=== PATIENT | female | born 1960 | race Caucasian/White ===

== ENCOUNTER → 2017-09-28 00:32 | Outpatient (CLI) | payer BC, SELFPAY ==
--- NOTE | 2017-09-28 08:40 | DI.REPORT_ITS ---
SYMPTOM/DIAGNOSIS: SPINAL STENOSIS, LUMBAR LUMBOSACRAL SPINE MRI: 09/28 MRI examination of the lumbosacral spine was performed according to the usual protocol. Note is made of metallic artifact overlying the SI joints bilaterally. The previously described small central disc herniation again noted at L5-S1, unchanged from previous examination of 01/25/13. Mild right neural foraminal narrowing also noted at L5-S1. No significant disc herniation identified elsewhere in the lumbar region. Neural foramina otherwise appear well maintained. Conus medullaris is intact. Mild facet hypertrophic changes noted at L4-5 and L5-S1 as well a at L3-4 No significant bony signal abnormality seen. CONCLUSION: Small central disc herniation at L5-S1, no gross interval change in appearance from previous examination of 02/01/13. No additional new findings. Mild right sided, neural foraminal narrowing at L5-S1.
== END ==
PROVIDERS: Visit Provider Nurse Practitioner
DX: M48.061 Spinal stenosis, lumbar region without neurogenic claudication (principal); M51.26 Other intervertebral disc displacement, lumbar region; M47.817 Spondylosis without myelopathy or radiculopathy, lumbosacral region
CPT/HCPCS: 72148

== ENCOUNTER 2017-10-10 15:06 | Outpatient (RCR) | payer BC, SELFPAY ==
--- NOTE | 2017-09-15 10:46 | NT_ITS ---
09/15/17 Cancelled today's scheduled PT appointment. Sahra Kraft, SERVICE DESK ANALYST
--- NOTE | 2017-10-10 15:33 | PTTR_ITS ---
DATE: 10/10/17 SUBJECTIVE: I am doing pretty much the same. I have an appointment with pain clinic on the . OBJECTIVE: * X Self Care Training - ([id number] x1): Patient was reviewed in her MRI findings and advised in what was confirmed through her Operating physician and the pain clinic. Since she had so much discomfort through mobilization and even light intrinsic strengthening the next option would be guidance in an aquatic program. [place] [facility] she has been instructed to perform some of her land based exercises in standing in the water. This will allow her to maintain her mobility, increase cardiovascular endurance and still have some amount of pain control. Patient was receptive to this idea and will try it. She will recheck within the next two weeks after her appointment with the pain clinic. Direct treatment time: 15 minutes of direct patient care.
== END 2017-10-13 23:59 | disposition home or self-care (01) ==
LOC: PT 15:06
PROVIDERS: Referring Provider Orthopaedic Surgery; Visit Provider Orthopaedic Surgery
DX: M54.5 Low back pain (principal); Z98.1 Arthrodesis status
CPT/HCPCS: 97535

== ENCOUNTER 2017-10-25 11:49 | Outpatient (CLI) | payer BC, SELFPAY ==
[2017-10-25 12:01] VITALS: BP 146/91; PULSE 98; RESP 20; TEMP 36.2; O2SAT 98
[2017-10-25] MEDS: Lidocaine 2% Pres-Free 5 ML VIAL IJ (12:39)
[2017-10-25] MEDS: Bupivacaine 0.5% Pres-Free 30 ML VIAL 5 ML IJ (12:41)
--- NOTE | 2017-10-25 12:43 | PDOC.PAIN ---
Pain Clinic Procedure Note Current Active Problems Problem Status Onset Myofascial pain dysfunction syndrome Acute Bilateral TRIGGER POINT INJECTION ECHO BURNS has been referred to the [facility] for intra-articular TRIGGER POINT injection. COMMENTS: Patient is status post bilateral SI joint fusion. The last one is right side done in June the left side was done a year prior to that. Overall she is doing better however she still is complaining of some pain above her SI region. I saw her approximately 4 years ago she had intra-articular facet injections as well as medial branch blocks with minimal relief. Today on examination she does have tenderness palpation in the muscles with taut trigger points noted on palpation. She also has bilateral positive Christy maneuver for facet mediated pain. Her most recent MRI from September 28, 2017 shows degenerative changes at multiple disc worse at L5-S1 with type I Modic changes at L5-S1 and L4-5. GRANT was interviewed and the medical record reviewed. There were no medical, pharmacologic, radiographic or other structural contraindications to attempting trigger point injection. Risks and expected side effects as well as potential benefit of the procedure were reviewed with GRANT, and GRANT's voiced concerns addressed. The printed consent form was signed and witnessed. Standard time-out procedure was performed. GRANT was placed in the prone position on the exam table. Trigger points were palpated in the lower lumbosacral region bilaterally. Using a 27-gauge 1.5 inch needle total of 10 mL's of mixture 0.5% bupivacaine and 2% lidocaine was used for separate locations. Tight muscular beds were palpated prior to injection. A significant component of the usual pain. Follow up plans and appointments were discussed with the GRANT. Post procedure instruction was given as documented in nursing documentation and having met discharge criteria, GRANT was discharged from the [facility]. COMMENTS: Patient tolerated procedure well. She will follow-up as needed. If she does not get relief then I would consider repeating a lumbar medial branch blocks bilaterally at L3, 4 and 5. That does not help then she might be a candidate for the easy vertebral nerve radiofrequency ablation at 2 levels. She would not be a candidate for the Intracept study because of her previous SI fusion. CC: Echo Arora
--- NOTE | 2017-11-06 15:07 | PDOC.PAIN_ITS ---
Pain Clinic Procedure Note Current Active Problems Problem Status Onset Myofascial pain dysfunction syndrome Acute Bilateral TRIGGER POINT INJECTION ECHO BURNS has been referred to the [facility] for intra- articular TRIGGER POINT injection. COMMENTS: Patient is status post bilateral SI joint fusion. The last one is right side done in June the left side was done a year prior to that. Overall she is doing better however she still is complaining of some pain above her SI region. I saw her approximately 4 years ago she had intra-articular facet injections as well as medial branch blocks with minimal relief. Today on examination she does have tenderness palpation in the muscles with taut trigger points noted on palpation. She also has bilateral positive Christy maneuver for facet mediated pain. Her most recent MRI from September 28, 2017 shows degenerative changes at multiple disc worse at L5-S1 with type I Modic changes at L5-S1 and L4-5. GRANT was interviewed and the medical record reviewed. There were no medical , pharmacologic, radiographic or other structural contraindications to attempting trigger point injection. Risks and expected side effects as well as potential benefit of the procedure were reviewed with GRANT, and GRANT's voiced concerns addressed. The printed consent form was signed and witnessed. Standard time-out procedure was performed. GRANT was placed in the prone position on the exam table. Trigger points were palpated in the lower lumbosacral region bilaterally. Using a 27-gauge 1.5 inch needle total of 10 mL's of mixture 0.5% bupivacaine and 2% lidocaine was used for separate locations. Tight muscular beds were palpated prior to injection. A significant component of the usual pain. Follow up plans and appointments were discussed with the GRANT. Post procedure instruction was given as documented in nursing documentation and having met discharge criteria, GRANT was discharged from the [facility]. COMMENTS: Patient tolerated procedure well. She will follow-up as needed. If she does not get relief then I would consider repeating a lumbar medial branch blocks bilaterally at L3, 4 and 5. That does not help then she might be a candidate for the easy vertebral nerve radiofrequency ablation at 2 levels. She would not be a candidate for the Intracept study because of her previous SI fusion. CC: Echo Arora
== END 2017-10-25 12:09 ==
PROVIDERS: Visit Provider Anesthesiology Pain Medicine
DX: M79.1 Myalgia (principal); Z98.890 Other specified postprocedural states
CPT/HCPCS: 20553

== ENCOUNTER 2017-11-08 08:41 | Outpatient (CLI) | payer BC, SELFPAY ==
[2017-11-08 08:47] VITALS: BP 138/88; PULSE 87; RESP 16; TEMP 35.7; O2SAT 99
--- NOTE | 2017-11-08 09:34 | DI.RAD_ITS ---
SYMPTOM/DIAGNOSIS: LUMBAR SPONDYLOSIS PAIN CLINIC: Fluoroscopy Time: 19.5 sec Images submitted from the Pain Clinic demonstrate needle positioning over the lateral portion of L4 , L5 and S1 in conjunction with an injection carried out by Dr. Marinelli. Please see the procedure report for further information.
--- NOTE | 2017-11-08 09:39 | PDOC.PAIN ---
Pain Clinic Procedure Note Current Active Problems Problem Status Onset Spondylosis of lumbar region without myelopathy or radiculopathy Chronic Lumbar/Sacral Medial Branch Blocks ECHO [place] GRANT has been referred to the [facility] for lumbar/sacral medial branch blocks. COMMENTS: Positive Kemps maneuver And spondylosis with low back pain above the level of fusion Patient was interviewed and the medical record reviewed. There were no medical, pharmacologic, radiographic or other structural contraindications to attempting fluoroscopically guided local anesthetic lumbar/sacral medial branch blocks. Risks and expected side effects as well as potential benefit of the procedure were reviewed and voiced concerns addressed. The printed consent form was signed and witnessed. Standard time-out procedure was performed. Patient was placed in the prone position on the fluoroscopy table and automated blood pressure cuff and pulse oximeter applied. The skin entry points for approaching the anatomic target points of the segmental medial branches of { bilateral L3, L4, 5} were identified with fluoroscopy and marked. Following thorough Chlorhexadine preparation of the skin and draping and 1% lidocaine infiltration of the skin entry points and subcutaneous tissues, a 22 gauge spinal needle was placed under fluoroscopic guidance down on to the target point for each respective segmental medial branch.Position was confirmed in A/P, oblique and lateral views with 0.25ml of omnipaque 240. At each point .5ml 0.5% Bupivacaine was injected. Vital signs were stable throughout the procedure and were as recorded in the docflowsheet by the nursing staff. Follow up plans and appointments were discussed and was instructed to keep careful note of how the usual pain was modified by these injections. Specifically was asked to keep a pain diary for the next 24 hours using a numeric pain scale of 0-10 and report these results at the follow-up visit. Post procedure instruction was given as documented in the nursing documentation and having met discharge criteria. Patient was discharged from the [facility]. Based on the medial branches blocked today, if the patient has adequate relief and we are able to proceed to radiofrequency ablation, the treatment should result in the denervation of the {bilateral L4-5, L5-S1 FACET JOINTS}. We would expect to denervate a total of {4} facets during the radiofrequency ablation. COMMENTS: Pain 1 from 07/23-03/25. She will need to follow-up for radiofrequency of the second. We also briefly discussed the basivertebral RF procedure at L5-S1 if this is not effective. CC: Echo Arora
[2017-11-08] MEDS: Omnipaque 240 MG/ML 50 ML BTL IJ (09:41)
[2017-11-08] MEDS: Bupivacaine 0.5% Pres-Free 30 ML VIAL IJ (09:41)
[2017-11-08 09:42] VITALS: BP 160/67; PULSE 81; RESP 17; O2SAT 95
--- NOTE | 2017-11-08 09:43 | PDOC.PAIN_ITS ---
Pain Clinic Procedure Note Current Active Problems Problem Status Onset Spondylosis of lumbar region without myelopathy or radiculopathy Chronic Lumbar/Sacral Medial Branch Blocks ECHO [place] GRANT has been referred to the [facility] for lumbar/ sacral medial branch blocks. COMMENTS: Positive Kemps maneuver And spondylosis with low back pain above the level of fusion Patient was interviewed and the medical record reviewed. There were no medical , pharmacologic, radiographic or other structural contraindications to attempting fluoroscopically guided local anesthetic lumbar/sacral medial branch blocks. Risks and expected side effects as well as potential benefit of the procedure were reviewed and voiced concerns addressed. The printed consent form was signed and witnessed. Standard time-out procedure was performed. Patient was placed in the prone position on the fluoroscopy table and automated blood pressure cuff and pulse oximeter applied. The skin entry points for approaching the anatomic target points of the segmental medial branches of { bilateral L3, L4, 5} were identified with fluoroscopy and marked. Following thorough Chlorhexadine preparation of the skin and draping and 1% lidocaine infiltration of the skin entry points and subcutaneous tissues, a 22 gauge spinal needle was placed under fluoroscopic guidance down on to the target point for each respective segmental medial branch.Position was confirmed in A/P, oblique and lateral views with 0.25ml of omnipaque 240. At each point .5ml 0.5% Bupivacaine was injected. Vital signs were stable throughout the procedure and were as recorded in the docflowsheet by the nursing staff. Follow up plans and appointments were discussed and was instructed to keep careful note of how the usual pain was modified by these injections. Specifically was asked to keep a pain diary for the next 24 hours using a numeric pain scale of 0-10 and report these results at the follow-up visit. Post procedure instruction was given as documented in the nursing documentation and having met discharge criteria. Patient was discharged from the [facility]. Based on the medial branches blocked today, if the patient has adequate relief and we are able to proceed to radiofrequency ablation, the treatment should result in the denervation of the {bilateral L4-5, L5-S1 FACET JOINTS}. We would expect to denervate a total of {4} facets during the radiofrequency ablation. COMMENTS: Pain 1 from 07/23-03/25. She will need to follow-up for radiofrequency of the second. We also briefly discussed the basivertebral RF procedure at L5- S1 if this is not effective. CC: Echo Arora
== END 2017-11-08 09:01 ==
PROVIDERS: Visit Provider Anesthesiology Pain Medicine
DX: M47.816 Spondylosis without myelopathy or radiculopathy, lumbar region (principal); G89.29 Other chronic pain
CPT/HCPCS: 64493; 64494; 64495; 72100; Q9967

== ENCOUNTER 2017-11-16 08:30 | Outpatient (CLI) | payer BC, SELFPAY ==
--- NOTE | 2017-11-16 06:00 | DI.RAD_ITS ---
SYMPTOM/DIAGNOSIS: LUMBAR SPONDYLOSIS C-ARM: Fluoroscopy Time: 58.8 seconds Fluoroscopy was utilized by Dr. Beebe during the performance of a lumbar spine injection. Please refer to the procedure report for complete details.
[2017-11-16 08:34] VITALS: BP 140/87; PULSE 97; RESP 18; TEMP 35.1; O2SAT 100
--- NOTE | 2017-11-16 09:17 | PDOC.PAIN ---
Pain Clinic Procedure Note Current Active Problems Problem Status Onset Spondylosis of lumbar region without myelopathy or radiculopathy Chronic Lumbar/Sacral Medial Branch Blocks #1 ECHO BURNS has been referred to the [facility] for lumbar/sacral medial branch blocks. COMMENTS: She did great with the first LMBB on 11/08/[address] Marinelli. Patient was interviewed and the medical record reviewed. There were no medical, pharmacologic, radiographic or other structural contraindications to attempting fluoroscopically guided local anesthetic lumbar/sacral medial branch blocks. Risks and expected side effects as well as potential benefit of the procedure were reviewed and voiced concerns addressed. The printed consent form was signed and witnessed. Standard time-out procedure was performed. Patient was placed in the prone position on the fluoroscopy table and automated blood pressure cuff and pulse oximeter applied. The skin entry points for approaching the anatomic target points of the segmental medial branches of bilateral L3-L5DR were identified with fluoroscopy and marked. Following thorough Chlorhexadine preparation of the skin and draping and 1% lidocaine infiltration of the skin entry points and subcutaneous tissues, a 25 gauge 3.5 spinal needle was placed under fluoroscopic guidance down on to the target point for each respective segmental medial branch.Position was confirmed in A/P, oblique and lateral views with 0.25ml of omnipaque 240. At each segmental level 0.5cc of 2% Lidocaine was injected. Vital signs were stable throughout the procedure and were as recorded in the docflowsheet by the nursing staff. Follow up plans and appointments were discussed and was instructed to keep careful note of how the usual pain was modified by these injections. Specifically was asked to keep a pain diary for the next 24 hours using a numeric pain scale of 0-10 and report these results at the follow-up visit. Post procedure instruction was given as documented in the nursing documentation and having met discharge criteria. Patient was discharged from the [facility]. Based on the medial branches blocked today, if the patient has adequate relief and we are able to proceed to radiofrequency ablation, the treatment should result in the denervation of the bilateral L4-L5 and L5-S1 FACET JOINTS. We would expect to denervate a total of 4 facets during the radiofrequency ablation. COMMENTS:Post procedure pain score was 2/10. She will call back with her 1-4 hour post-procedure pain scores for the low back. CC: Echo Arora
--- NOTE | 2017-11-16 09:20 | PDOC.PAIN_ITS ---
Pain Clinic Procedure Note Current Active Problems Problem Status Onset Spondylosis of lumbar region without myelopathy or radiculopathy Chronic Lumbar/Sacral Medial Branch Blocks #1 ECHO BURNS has been referred to the [facility] for lumbar/ sacral medial branch blocks. COMMENTS: She did great with the first LMBB on 11/08/[address] Marinelli. Patient was interviewed and the medical record reviewed. There were no medical , pharmacologic, radiographic or other structural contraindications to attempting fluoroscopically guided local anesthetic lumbar/sacral medial branch blocks. Risks and expected side effects as well as potential benefit of the procedure were reviewed and voiced concerns addressed. The printed consent form was signed and witnessed. Standard time-out procedure was performed. Patient was placed in the prone position on the fluoroscopy table and automated blood pressure cuff and pulse oximeter applied. The skin entry points for approaching the anatomic target points of the segmental medial branches of bilateral L3-L5DR were identified with fluoroscopy and marked. Following thorough Chlorhexadine preparation of the skin and draping and 1% lidocaine infiltration of the skin entry points and subcutaneous tissues, a 25 gauge 3.5 spinal needle was placed under fluoroscopic guidance down on to the target point for each respective segmental medial branch.Position was confirmed in A/P, oblique and lateral views with 0.25ml of omnipaque 240. At each segmental level 0.5cc of 2% Lidocaine was injected. Vital signs were stable throughout the procedure and were as recorded in the docflowsheet by the nursing staff. Follow up plans and appointments were discussed and was instructed to keep careful note of how the usual pain was modified by these injections. Specifically was asked to keep a pain diary for the next 24 hours using a numeric pain scale of 0-10 and report these results at the follow-up visit. Post procedure instruction was given as documented in the nursing documentation and having met discharge criteria. Patient was discharged from the [facility]. Based on the medial branches blocked today, if the patient has adequate relief and we are able to proceed to radiofrequency ablation, the treatment should result in the denervation of the bilateral L4-L5 and L5-S1 FACET JOINTS. We would expect to denervate a total of 4 facets during the radiofrequency ablation. COMMENTS:Post procedure pain score was 2/10. She will call back with her 1-4 hour post-procedure pain scores for the low back. CC: Echo Arora
[2017-11-16 09:24] VITALS: BP 148/88; PULSE 87; RESP 18; O2SAT 95
[2017-11-16] MEDS: Lidocaine 2% Pres-Free 5 ML VIAL IJ (09:24)
[2017-11-16] MEDS: Omnipaque 240 MG/ML 50 ML BTL IJ (09:24)
== END 2017-11-16 08:50 ==
PROVIDERS: Visit Provider Preventive Medicine Occupational Medicine
DX: M47.816 Spondylosis without myelopathy or radiculopathy, lumbar region (principal); G89.29 Other chronic pain
CPT/HCPCS: 64493; 64494; 72100; Q9967

== ENCOUNTER 2017-12-13 08:08 | Outpatient (CLI) | payer BC, SELFPAY ==
[2017-12-13 08:15] VITALS: BP 131/87; PULSE 97; RESP 18; TEMP 35.4; O2SAT 98
--- NOTE | 2017-12-13 09:10 | DI.RAD_ITS ---
SYMPTOM/DIAGNOSIS: LUMBAR SPONDYLOSIS C-ARM: Fluoroscopy Time: 57.7 seconds Images submitted from the pain clinic demonstrate needle positioning over the lower lumbar spine in conjunction with a radiofrequency ablation carried out by Dr. Marinelli. Please see the procedure report for further information.
[2017-12-13] MEDS: Midazolam 2 MG/2 ML VIAL IVP (09:17)
[2017-12-13] MEDS: Lactated Ringers 1,000 ML 80 ML IV (09:17)
[2017-12-13] MEDS: fentaNYL 100 MCG/2 ML VIAL IVP (09:18)
[2017-12-13 09:49] VITALS: BP 149/81; PULSE 77; RESP 16; O2SAT 96
--- NOTE | 2017-12-13 10:05 | PDOC.PAIN_ITS ---
Pain Clinic Procedure Note Current Active Problems Problem Status Onset Spondylosis of lumbar region without myelopathy or radiculopathy Chronic LUMBAR/SACRAL MEDIAL BRANCH COOLED RADIOFREQUENCY ECHO BURNS has been referred to the [facility] for radiofrequency treatment of chronic axial back pain. ECHO has had long standing back pain thought to be facet joint generated and which has been refractory to other therapies. Local anesthetic medial branch blocks or intra- articular facet joint injections resulted in ECHO reporting reduction of the usual axial component of pain for at least the duration of the local anesthetic effect. COMMENTS: Patient had good relief from bilateral lumbar medial branch blocks Patient was interviewed and the medical record reviewed. There were no medical , pharmacologic, radiographic or other structural contraindications to attempting fluoroscopically guided radiofrequency treatment. Risks and expected side effects as well as potential benefit of the procedure were reviewed and voiced concerns addressed. The printed consent form was signed and witnessed. Standard time-out procedure was performed. Patient was placed in the prone position on the fluoroscopy table and automated blood pressure cuff and pulse oximeter applied. The skin entry points for approaching the anatomic target points of the segmental medial branches of { bilateral L3,4,5} were identified with fluoroscopy and marked. Following thorough Chlorhexadine preparation of the skin and draping and 1% lidocaine infiltration of the skin entry points and subcutaneous tissues, a single 17 guage straight 10 cm 4mm active tip radiofrequency cannula was placed under fluoroscopic guidance along or across the anatomic course of each respective segmental medial branch. Each placement was stimulated at 50Hz and les then 0.5V for medial branch sensory localization and the at 2Hz and up to 3 times the sensory voltage without any evidence of distal myotomal stimulation. 1cc of 1% ;idocaine was injected at each site. At each placement a continuous mode radiofrequency treatment was done at 90 degrees C for 90secs and then rotated 180degrees and then repeated. This radiofrequency treatment should result in the denervation of the { bilateral L4-5, L5-S1 FACET JOINTS}.~ A total of {4} facets were expected to be denervated from today's treatment. Vital signs were stable throughout the procedure and were as recorded in the docflowsheet by the nursing staff. If given, dosages of intravenous drugs for anxiolysis and analgesia were documented in the Medication Administration Record (MAR). Follow up plans and appointments were discussed. Post procedure instruction was given as documented in the nursing documentation and having met discharge criteria, ECHO was discharged from the [facility]. COMMENTS: Versed 1 mg and 50 mcg given. Patient will follow-up as needed. She does have significant Modic changes at L5-S1 so would consider basal vertebral nerve RF if not relieved above. CC: Echo Arora
== END 2017-12-13 08:28 ==
PROVIDERS: Visit Provider Anesthesiology Pain Medicine
DX: G44.82 Headache associated with sexual activity; R42 Dizziness and giddiness; F17.210 Nicotine dependence, cigarettes, uncomplicated; M47.816 Spondylosis without myelopathy or radiculopathy, lumbar region; G89.29 Other chronic pain
CPT/HCPCS: 64635; 64636; 72100; J2250; J3010

== ENCOUNTER 2018-10-18 12:03 | Outpatient (CLI) | payer BC, SELFPAY ==
--- NOTE | 2018-10-18 13:16 | DI.RAD_ITS ---
SYMPTOMS/DIAGNOSIS: RT HIP PAIN, M25.551 RIGHT HIP AND PELVIS: Three views were obtained. There are fixation devices of both SI joints. The cartilaginous joint spaces of the hips appear fairly well maintained. No significant bony abnormality seen.
== END 2018-10-18 12:23 ==
PROVIDERS: Visit Provider Nurse Practitioner Family
DX: M25.551 Pain in right hip (principal)
CPT/HCPCS: 73502

== ENCOUNTER 2019-03-12 01:00 | Outpatient (CLI) | payer BC, SELFPAY ==
--- NOTE | 2019-03-12 08:54 | DI.MRI_ITS ---
EXAM: MR LUMBAR SPINE WO/W CLINICAL HISTORY: SACROILITIS, M46.1, SCIATICA RT, M54.31, PAIN IN RT HIP. TECHNIQUE: Multiplanar multisequence MRI was performed. Fat-suppressed T1 axial and sagittal sequen jg were performed pre and post IV gadolinium. COMPARISON: MRI - LUMBAR SPINE WO CONTRAST from 09/28/2017 XR hip RT complete AP pelvis from 10/18/2018 FINDINGS: Metallic hardware is seen across the sacroiliac joints which creates artifact particularly on the fat -suppressed sequences. A marker was placed over the area of the patient's pain over the midline of t he upper sacrum. The marrow signal is normal. There are no abnormal enhancing lesions. There is mi ld disc bulging at T12-L1. The conus medullaris appears intact. The L1-2 level shows small osteophy aneudy projecting anteriorly. At L2-3, there is mild disc bulging and mild facet degenerative changes b ut no significant neural foraminal narrowing or central canal stenosis. At L3-4, there is mild disc bulging and mild facet degenerative changes as well as mild ligamentous hypertrophy. There is no sig nificant neural foraminal narrowing or central canal stenosis. At L4-5, there is mild to moderate lo ss of disc height and concentric disc bulging. There are facet degenerative changes but no significa nt neural foraminal narrowing. At L5-S1, there is moderate loss of disc height. There is a small ce ntral disc protrusion which does not definitely contact nerve roots. It does not appear to contact t he thecal sac. There is no significant neural foraminal narrowing. The findings appear roughly stab le when compared with the previous exam. IMPRESSION: Stable degenerative disc changes and facet degenerative changes. There is no significant neural fora analisa narrowing or central canal stenosis.
[2019-03-12 09:06] LABS: Anion Gap 9.2 mmol/L (3-11); BUN 10 mg/dL (7-18); CO2 28.8 mmol/L (21.0-32.0); CREATININE 0.74 mg/dL (0.55-1.02); Calcium 8.4 mg/dL (8.5-10.1); Chloride 101 mmol/L (98-107); Glucose 99 mg/dL (74-106); Potassium 3.8 mmol/L (3.5-5.1); Sodium 139 mmol/L (136-145)
[2019-03-12] MEDS: Normal Saline Flush 10 ML SYR IVP (09:21)
[2019-03-12] MEDS: Gadoterate meglumine 20 ML VIAL 15 ML IVP (09:23)
[2019-03-12 10:17] LABS: ALT 16 U/L (14-59); AST 10 U/L (15-37); Calculated LDL 109 mg/dL (<100); Cholesterol 178 mg/dL (<200); HDL Cholesterol 53 mg/dL (40-60); Triglyceride 84 mg/dL (<150)
== END 2019-03-12 01:20 ==
PROVIDERS: PCP Nurse Practitioner Family; Visit Provider Nurse Practitioner Family
DX: M25.551 Pain in right hip (principal); M54.31 Sciatica, right side; M46.1 Sacroiliitis, not elsewhere classified; M51.17 Intervertebral disc disorders with radiculopathy, lumbosacral region; M47.27 Other spondylosis with radiculopathy, lumbosacral region; Z13.220 Encounter for screening for lipoid disorders; Z00.00 Encounter for general adult medical examination without abnormal findings; Z13.89 Encounter for screening for other disorder
CPT/HCPCS: 72158; 80048; 80061; 84450; 84460

== ENCOUNTER 2019-04-23 13:33 | Outpatient (CLI) | payer BC, SELFPAY ==
--- NOTE | 2019-04-23 06:00 | DI.RAD_ITS ---
EXAM: XR PAIN CLINIC LUMBAR SP 2V CLINICAL HISTORY: DX: LUMBAR RADICULOPATHY TECHNIQUE: 2D and realtime digital imaging was performed. CONTRAST MATERIAL: Refer to procedure report. COMPARISON: No exams were available for comparison FINDINGS: Fluoroscopy was provided for Dr. Lin during the performance of a lumbar epidural steroid injection. P alyssa refer to the procedure report for complete details. Fluoro time: 26.1 seconds IMPRESSION:
--- NOTE | 2019-04-23 13:35 | PDOC.PAIN ---
Pain Clinic Procedure Note Procedure Note Procedure Note: Lumbar Epidural Steroid Injection Procedure Note Pre-operative diagnosis: lumbar radiculopathy Post-operative diagnosis: same as above COMMENTS: patient reports back andn right more than left leg pain. She was evaluated by Ms Alexia Blackwell APRN in our pain clinic and is referred for trial of LESI for symptomatic relief. CHITO BURNS has been referred to the [facility] for lumbar epidural steroid injection. The patient was greeted by the nurse who verified patients name and . Patient was then taken to the fluoroscopy suite. The patient was interviewed and the medial record reviewed. There were no medical, pharmacologic, radiographic, or other structural contraindications to attempting fluoroscopically guided lumbar epidural steroid injection. Risks and expected side effects as well as potential benefits of the procedure were reviewed and voiced concerns expressed. The patient consent form was signed and witnessed. Standard patient time-out procedure was performed. The patient was placed in the prone position on the fluoroscopy table and automated blood pressure cuff and pulse oximeter applied. The skin entry point for entering/approaching the epidural space by a L5-S1 and marked. Following thorough chlorhexadine preparation of the skin and draping and 1% lidocaine infiltration of the skin entry point and subcutaneous tissues, a 18 gauge Touhy needle was placed under fluoroscopic guidance and with loss of resistance technique into the epidural space. Needle tip placement and depth were aided and confirmed by fluoroscopy. There was no paresthesia or return of blood or CSF through the needle. 1 cc's of Omnipaque 240 was injected with clear epidural spread confirmed with fluoroscopy. 80mg depomedrol was injected. There was not any unusual discomfort expressed by CHITO BURNS. Patient's vital signs were stable throughout the procedure and were as recorded in nursing records. Follow up plans and appointments were discussed with patient. Post procedure instruction was given as documented in nursing records and having met discharge criteria and was discharged from the [facility]. COMMENTS: If this procedure is helpful, it can be completed up to 3 times per 12 months. I personally performed the entire procedure. Juanito Lin MD Pain Management
[2019-04-23 13:38] VITALS: BP 132/79; PULSE 104; RESP 20; TEMP 37; O2SAT 98
[2019-04-23 14:17] VITALS: BP 148/82; PULSE 98; RESP 15; O2SAT 100
[2019-04-23] MEDS: methylPREDNISolone ACETATE 80 MG/ML VIAL IJ (14:19)
[2019-04-23] MEDS: Omnipaque 240 MG/ML 50 ML BTL IJ (14:20)
== END 2019-04-23 13:53 ==
PROVIDERS: PCP Nurse Practitioner Family; Visit Provider Internal Medicine
DX: M54.16 Radiculopathy, lumbar region (principal)
CPT/HCPCS: 62323; 72100; J1040; Q9967

== ENCOUNTER 2019-08-13 09:32 | Outpatient (CLI) | payer BC, SELFPAY ==
--- NOTE | 2019-08-13 06:00 | DI.RAD_ITS ---
EXAM: XR PAIN CLINIC LUMBAR SP 2V CLINICAL HISTORY: Dx: Lumbar Radiculopathy TECHNIQUE: 2D and realtime digital imaging was performed. CONTRAST MATERIAL: Refer to procedure report. COMPARISON: No exams were available for comparison FINDINGS: Fluoroscopy was provided for Dr. Lin during the performance of a epidural steroid injection. Please refer to the procedure report for complete details. Fluoro time: 29 seconds IMPRESSION:
[2019-08-13 09:46] VITALS: BP 109/87; PULSE 92; RESP 20; TEMP 36.6; O2SAT 98
--- NOTE | 2019-08-13 09:50 | PDOC.PAIN_ITS ---
Pain Clinic Procedure Note Procedure Note Procedure Note: CANDAL EPIDURAL STEROID WITH CATHETER INJECTION PROCEDURE NOTE Pre-operative diagnosis: lumbar radiculopathy Post-operative diagnosis: same as above Date of service: August 13, 2019 COMMENTS: patient received LESI at L5-S1 level on 04/23/2019 which provided 2.5 weeks of pain relief. She returns for a repeat injection. She is status post bilateral SI joint fusion surgery by Dr Boyer. She reports left sided SI pain improved dramatically after fusion, however, right side remains to be problematic. She reports pain over lower back as well as right buttock area. We discussed using different approach to access the epidural space, caudal BERNARD allows catheter to sacral levels which partially innervates the sacroiliac joint. CHITO BURNS has been referred to the [facility] for lumbar epidural steroid injection. Patient was greeted by the nurse who verified patients name and . Patient was then taken to the fluoroscopy suite. Patient was interviewed and the medical record reviewed. There were no medical, pharmacologic, radiographic, or other structural contraindications to attempting fluoroscopically guided lumbar epidural steroid injection. Risks and expected side effects as well as potential benefits of the procedure were reviewed and voiced concerns addressed. The patient consent form was signed and witnessed. Standard time-out procedure was performed. Patient was placed in the prone position on the fluoroscopy table and automated blood pressure cuff and pulse oximeter applied. The skin entry point for entering/approaching sacral cornu. Following thorough chlorhexadine preparation of the skin and draping and 1% lidocaine infiltration of the skin entry point and subcutaneous tissues, a 17 gauge Touhy needle was placed under fluoroscopic guidance and with loss of resistance technique into the epidural space. Needle tip placement and depth were aided and confirmed by fluoroscopy. There was no paresthesia or return of blood or CSF through the needle. An 19 gauge radio- opaque Arrow catheter was thread to the S1 level and 1 cc's of Omnipaque 240 was injected with clear epidural spread confirmed with fluoroscopy with delineation of cephalad flow reaching L5 level. Then 80mg depomedrol mixed with 1.5cc of preservative free normal saline and 2cc of preservative free 1% lidocaine was injected. There was not any unusual discomfort expressed. please note, the catheter was preferentially directed towards the right side. Vital signs were stable throughout the procedure and were as recorded in nursing records. Follow up plans and appointments were discussed.Post procedure instruction was given as documented in nursing records and having met discharge criteria and was discharged from the [facility]. COMMENTS: patient tolerated procedure well. She reports with injection of contrast and medication, she felt reproduction of right buttock pain. Immediately after procedure, she reported some improvement of her lower back pain. If caudal BERNARD achieves additional pain relief, would repeat caudal in future. I personally performed the entire procedure. Juanito Lin MD Pain Management
[2019-08-13] MEDS: methylPREDNISolone ACETATE 80 MG/ML VIAL IJ (10:15)
[2019-08-13] MEDS: Omnipaque 240 MG/ML 50 ML BTL IJ (10:17)
[2019-08-13 10:18] VITALS: BP 150/90; PULSE 85; RESP 13; O2SAT 100
== END 2019-08-13 09:52 ==
PROVIDERS: PCP Nurse Practitioner Family; Visit Provider Internal Medicine
DX: M54.16 Radiculopathy, lumbar region (principal)
CPT/HCPCS: 62323; 72100; J1040; Q9967

== ENCOUNTER 2019-08-30 03:53 | Outpatient (CLI) | payer BC, SELFPAY ==
--- NOTE | 2019-08-30 09:42 | DI.RAD_ITS ---
EXAM: XR SACROILIAC JOINTS CLINICAL HISTORY: h/o b/l SIJ fusions with continued R SIJ pain,SI JOINT DYSFUNCTION,M53.3 TECHNIQUE: COMPARISON: CR XR hip RT complete AP pelvis from 10/18/2018 FINDINGS: Four views were obtained. There are bilateral SI joint effusions with fixation devices in place bila terally. These have been present on prior radiographs and appear grossly unchanged in alignment in c omparison with previous films of October 2018. No other significant bony abnormality seen. IMPRESSION:
== END 2019-08-30 04:13 ==
PROVIDERS: PCP Nurse Practitioner Family; Visit Provider Nurse Practitioner Family
DX: M53.3 Sacrococcygeal disorders, not elsewhere classified (principal); Z98.890 Other specified postprocedural states
CPT/HCPCS: 72202

== ENCOUNTER 2019-09-23 01:52 | Outpatient (CLI) | payer BC, SELFPAY ==
--- NOTE | 2019-09-23 | DI.CT_ITS ---
EXAM: CT PELVIC WO CLINICAL HISTORY: CHRONIC MIDLINE LOW BACK PAIN,RT SI PAIN,S/P FUSION,EVALUATE FOR LOOSENING. TECHNIQUE: Imaging Protocol: Axial computed tomography images with coronal and sagittal reformatted images were created and reviewed. COMPARISON: CR XR SACROILIAC JOINTS from 08/30/2019 FINDINGS: Bones: The osseous structures and articular surfaces are intact. There is no evidence of fracture or dislocation. Bony alignment is satisfactory. Moderate degenerative changes are seen in the lower blanquita mbar spine. No lytic or sclerotic lesions are identified. The patient is status post bilateral SI althea int fusion. The orthopedic hardware appears intact. No lucencies are seen in or about the orthopedi c hardware to suggest loosening or fracture. Soft Tissues: Normal. IMPRESSION: 1. Bilateral SI joint fusion without evidence of loosening or fracture. 2. Moderate degenerative changes seen in the lower lumbar spine. RADIATION DOSE DELIVERED: 248.89mGy.cm Total DLP 248.89mGy.cm Total DLP 248.89mGy.cm Total DLP 248.89mGy.cmTotal DLP DATA REPOSITORY: All CT scans at this facility are submitted to the National Radiology Data Registry (NRDR) Dose Index Registry (DIR) with the [employer] ([employer]). RADIATION OPTIMIZATION: All CT scans at this facility use at least one of these dose optimization te chniques: automated exposure control; mA and/or kV adjustment per patient size (includes targeted exa ms where dose is matched to clinical indication); or iterative reconstruction.
== END 2019-09-23 02:12 ==
PROVIDERS: PCP Nurse Practitioner Family; Visit Provider Orthopaedic Surgery
DX: M54.5 Low back pain (principal); M53.3 Sacrococcygeal disorders, not elsewhere classified; Z98.1 Arthrodesis status; M47.816 Spondylosis without myelopathy or radiculopathy, lumbar region
CPT/HCPCS: 72192

== ENCOUNTER 2020-04-29 19:35 | Outpatient (REF) | payer BC, SELFPAY ==
[2020-04-29 21:48] LABS: Abs Immature Grans 0.04 10^3/uL (0.0-0.06); Absolute Basophil Count 0.17 10^3/uL (0.0-0.2); Absolute Lymphocyte Count 3.35 10^3/uL (1.2-3.4); Absolute Monocyte Count 1.54 10^3/uL (0.1-0.8); Absolute Neutrophil Count 6.74 10^3/uL (1.2-6.7); Basophils % 1.3; Eosinophils % 8.4; HCT 45.1 % (36.0-46.0); HGB 15.2 g/dL (11.2-15.7); Immature Grans % 0.3; Lymphocytes % 25.9; MCH 32.1 pg (27.0-33.0); MCHC 33.7 % (32.0-36.0); MCV 95.1 fL (80-95); MPV 12.1 fL (8.0-11.0); Monocytes % 11.9; Neutrophils % 52.2; Nucleated RBC 0 %; Platelet Count 195 10^3/uL (130-400); RBC 4.74 10^6/uL (3.93-5.22); RDW 12.6 % (11.7-14.6); RDW-SD 44.6 fL; WBC 12.92 10^3/uL (4.4-10.8)
[2020-04-29 21:53] LABS: Absolute Eosinophil Count 1.09 10^3/uL (0.0-0.7)
[2020-04-29 21:54] LABS: Anion Gap 6.9 mmol/L (3-11); BUN 20 mg/dL (7-18); CO2 31.1 mmol/L (21.0-32.0); CREATININE 0.7 mg/dL (0.55-1.02); Calcium 9.2 mg/dL (8.5-10.1); Chloride 101 mmol/L (98-107); Glucose 102 mg/dL (74-106); Potassium 4.5 mmol/L (3.5-5.1); Sodium 139 mmol/L (136-145)
[2020-04-29 22:07] LABS: Diff Comment Agrees w/ Instrument; RBC Morphology Normal
== END 2020-04-29 19:36 | disposition home or self-care (01) ==
LOC: NCHCN 19:35
PROVIDERS: PCP Nurse Practitioner Family; Visit Provider Nurse Practitioner Family
DX: Z01.812 Encounter for preprocedural laboratory examination
CPT/HCPCS: 80048; 85025

== ENCOUNTER 2020-09-24 13:08 | Outpatient (REF) | payer BC, SELFPAY ==
[2020-09-24 14:10] LABS: Abs Immature Grans 0.07 10^3/uL (0.0-0.06); Absolute Basophil Count 0.11 10^3/uL (0.0-0.2); Absolute Eosinophil Count 0.58 10^3/uL (0.0-0.7); Absolute Lymphocyte Count 2.75 10^3/uL (1.2-3.4); Absolute Monocyte Count 1.27 10^3/uL (0.1-0.8); Absolute Neutrophil Count 6.39 10^3/uL (1.2-6.7); Eosinophils % 5.2; HCT 41.9 % (36.0-46.0); Immature Grans % 0.6; Lymphocytes % 24.6; MCH 32.2 pg (27.0-33.0); MCHC 33.4 % (32.0-36.0); MCV 96.3 fL (80-95); MPV 11.2 fL (8.0-11.0); Monocytes % 11.4; Neutrophils % 57.2; Nucleated RBC 0 %; Platelet Count 128 10^3/uL (130-400); RBC 4.35 10^6/uL (3.93-5.22); RDW 12.9 % (11.7-14.6); RDW-SD 46.1 fL; WBC 11.17 10^3/uL (4.4-10.8)
[2020-09-24 14:14] LABS: Uric Acid 5.1 mg/dL (2.6-6.0)
== END 2020-09-24 13:09 | disposition home or self-care (01) ==
LOC: NCHCN 13:08
PROVIDERS: PCP Nurse Practitioner Family; Visit Provider Nurse Practitioner Family
DX: M25.521 Pain in right elbow (principal); M25.522 Pain in left elbow; D72.829 Elevated white blood cell count, unspecified
CPT/HCPCS: 84550; 85025

== ENCOUNTER 2020-09-28 02:08 | Outpatient (CLI) | payer BC, SELFPAY ==
--- NOTE | 2020-09-28 | DI.RAD_ITS ---
Exam(s) XR ELBOW LT COMPLETE EXAM: XR ELBOW LT COMPLETE CLINICAL HISTORY: ELBOW PAIN,M25.529. TECHNIQUE: 2D digital imaging was performed. COMPARISON: CR XR ELBOW RT COMPLETE from 09/28/2020 FINDINGS: There is no evidence of fracture nor joint effusion. There is no swelling of the olecranon bursa. Radial head and capitellum appear unremarkable but there is a small corticated ossified density measu ring 1.3 millimeters noted in the mid joint space on this single view. This is most probably loose i ntra-articular body. There is no obvious osteochondral defect in the capitellum and trochlea. Minim al degenerative changes evident. Slight bony excrescences on both epicondyles may indicate epicondylitis. Correlation with clinical e xam recommended. IMPRESSION: Small 1.3 millimeter loose intra-articular body. No obvious joint effusion. If clinically indicated MRI follow-up can be performed. Mild epicondylar findings as described above. DATA REPOSITORY: RADIATION DOSE DELIVERED:
--- NOTE | 2020-09-28 | DI.RAD_ITS ---
Exam(s) XR ELBOW RT COMPLETE EXAM: XR ELBOW RT COMPLETE CLINICAL HISTORY: ELBOW PAIN,M25.529. TECHNIQUE: 2D digital imaging was performed. COMPARISON: No exams were available for comparison FINDINGS: There is no evidence of fracture nor joint effusion and there is no prominent swelling of the olecran on bursa. The radial head appears unremarkable. Slight degenerative change at the level of the capi tellum noted but no osteochondral defect. No obvious loose intra-articular body (as is seen on the o pposite side). Minimal degenerative changes. Bone density normal. Mild cortical irregularity of lissette th epicondyles is noted, similar to the opposite side. IMPRESSION: DATA REPOSITORY: RADIATION DOSE DELIVERED:
== END 2020-09-28 02:28 ==
PROVIDERS: PCP Nurse Practitioner Family; Visit Provider Nurse Practitioner Family
DX: M24.022 Loose body in left elbow (principal); M19.021 Primary osteoarthritis, right elbow
CPT/HCPCS: 73080

== ENCOUNTER 2020-12-30 14:37 | Outpatient (REF) | payer BC, SELFPAY ==
[2020-12-30 21:15] LABS: Abs Immature Grans 0.04 10^3/uL (0.0-0.06); Absolute Lymphocyte Count 2.77 10^3/uL (1.2-3.4); Absolute Monocyte Count 1.25 10^3/uL (0.1-0.8); Basophils % 1.1; Eosinophils % 6.8; HCT 40.2 % (36.0-46.0); HGB 13.4 g/dL (11.2-15.7); Immature Grans % 0.4; Lymphocytes % 24.3; MCH 31.6 pg (27.0-33.0); MCHC 33.3 % (32.0-36.0); MCV 94.8 fL (80-95); MPV 12.1 fL (8.0-11.0); Neutrophils % 56.4; Nucleated RBC 0 %; Platelet Count 141 10^3/uL (130-400); RBC 4.24 10^6/uL (3.93-5.22); RDW 14.1 % (11.7-14.6); RDW-SD 49.1 fL; WBC 11.39 10^3/uL (4.4-10.8)
[2020-12-30 21:24] LABS: Absolute Basophil Count 0.13 10^3/uL (0.0-0.2); Absolute Eosinophil Count 0.77 10^3/uL (0.0-0.7); Absolute Neutrophil Count 6.42 10^3/uL (1.2-6.7)
== END 2020-12-30 14:38 | disposition home or self-care (01) ==
LOC: LBN 14:37
PROVIDERS: PCP Nurse Practitioner Family; Visit Provider Nurse Practitioner Family
DX: D72.829 Elevated white blood cell count, unspecified (principal)
CPT/HCPCS: 85025

== ENCOUNTER 2021-02-09 01:57 | Outpatient (CLI) | payer BC, SELFPAY ==
--- NOTE | 2021-02-09 13:30 | DI.MRI_ITS ---
Exam(s) MR UPPER JOINT RT WO EXAM: MR UPPER JOINT RT WO CLINICAL HISTORY: Failed conservative txs,lateral epicondylitis,m77.11. TECHNIQUE: Multiplanar multisequence MRI was performed. COMPARISON: CR XR ELBOW LT COMPLETE from 09/28/2020 CR XR ELBOW LT COMPLETE from 09/28/2020 FINDINGS: MR examination of the elbow was performed according to the usual protocol. There is reportedly histo ry of lateral epicondylitis. On today's examination, no bony signal abnormality is seen involving the bones of the elbow. There i s a slight joint effusion. There is abnormal signal in the common extensor tendon. There appears to be an attachment tear at th e lateral epicondyle measuring about 3 millimeters in width. There may be some fraying of the underl isabelle radial and or ulnar collateral ligaments without gross disruption. There is no evidence tendon retraction. There is a slight subcutaneous fluid collection overlying common extensor region. Otherwise no significant abnormality is seen involving ligaments or tendons of the elbow. No signifi cant fluid collection. IMPRESSION: The appearance as described is consistent with minor tearing at the common extensor tendon origin on the lateral epicondyle of the humerus without retraction. Suspect radial and/or ulnar collateral lig ament partial-thickness injury as well. DATA REPOSITORY:
== END 2021-02-09 02:17 ==
PROVIDERS: PCP Nurse Practitioner Family; Visit Provider Student in an Organized Health Care Education/Training Program
DX: M77.11 Lateral epicondylitis, right elbow (principal); M25.421 Effusion, right elbow; S56.511A Strain of other extensor muscle, fascia and tendon at forearm level, right arm, initial encounter; X58.XXXA Exposure to other specified factors, initial encounter
CPT/HCPCS: 73221

== ENCOUNTER 2021-03-17 03:11 | Outpatient (CLI) | payer BC, SELFPAY ==
[2021-03-17 11:31] LABS: Source Nasal/Nares
[2021-03-17 16:13] LABS: COVID-19 PCR Negative (Negative)
== END 2021-03-17 03:12 | disposition home or self-care (01) ==
LOC: LBO 03:11
PROVIDERS: PCP Nurse Practitioner Family; Visit Provider Student in an Organized Health Care Education/Training Program
DX: Z20.822 Contact with and (suspected) exposure to COVID-19 (principal)
CPT/HCPCS: 87635

== ENCOUNTER 2021-03-30 01:02 | Outpatient (CLI) | payer BC, SELFPAY ==
[2021-03-30 13:40] LABS: COVID-19 PCR Negative (Negative)
[2021-03-30 13:46] LABS: Source NASAL
== END 2021-03-30 01:03 | disposition home or self-care (01) ==
LOC: LBO 01:03
PROVIDERS: PCP Nurse Practitioner Family; Visit Provider Student in an Organized Health Care Education/Training Program
DX: Z20.822 Contact with and (suspected) exposure to COVID-19 (principal); Z01.818 Encounter for other preprocedural examination
CPT/HCPCS: 87635

== ENCOUNTER 2021-04-01 08:50 | Day surgery (SDC) | payer BC, SELFPAY ==
[2021-04-01] VITALS (8 sets, daily range): BP systolic 114–161; BP diastolic 57–85; PULSE 75–99; RESP 14–19; TEMP 36.5–37; O2SAT 91–100; BMI 24.5
[2021-04-01] MEDS: Lactated Ringers 1,000 ML 100 ML IV (09:42)
--- NOTE | 2021-04-01 10:08 | W.ANESPRE ---
General Info Date of Service Date Performed: 04/01/21 Height: 5 ft 10 in Weight: 77.4 kg Body Mass Index (BMI): 24.5 Surgical Procedure: Operation Date: 04/01/21 10:50 Proposed Procedure Side Surgeon p Elbow Arthroscopy Lake Hancock MD Meds Allergies and Home Medications Allergies Allergy/AdvReac Type Severity Reaction Status Date / Time adhesive Allergy Intermediate rash Verified 04/01/21 09:02 latex Allergy Intermediate rash Verified 04/01/21 09:02 mold Allergy Intermediate Hives Verified 04/01/21 09:02 morphine Allergy HIVES Verified 04/01/21 09:02 Home Medication Medication Instructions Recorded hydrocortisone 2.5 % topical cream 1 applic TOPICAL BID PRN 04/04/19 aspirin 81 mg tablet,delayed 81 mg PO DAILY 14 Days #14 tab 04/01/21 release naproxen 250 mg tablet 250 - 500 mg PO BID PRN #30 tab 04/01/21 oxycodone 5 mg tablet 5 - 10 mg PO Q4H PRN #12 tab MDD 04/01/21 30 mg Current Visit Medications: Current Medications Generic Name Dose Route Start Last Admin Trade Name Freq PRN Reason Stop Dose Admin Ringer's Solution 1,000 mls @ 100 mls/hr 04/01/21 06:00 04/01/21 09:42 IV 04/30/21 23:59 100 mls/hr INFUSION VALDEZ Administration Cefazolin Sodium/Dextrose 2 gm in 50 mls @ 100 mls/hr 04/01/21 06:00 Ancef Duplex IVPB 04/01/21 16:00 PREOP VALDEZ IV Miscellaneous Supplies 1 each 04/01/21 06:00 Iv Access IV 04/30/21 23:59 DIRECTED VALDEZ Naproxen 250 - 500 mg 04/01/21 07:16 Naproxen 500 Mg Tab PO BID PRN PRN Oxycodone HCl 5 - 10 mg 04/01/21 07:16 Oxycodone 5 Mg Tab PO Q4H PRN PRN Sodium Chloride 0 ml 04/01/21 06:00 Normal Saline Flush 10 Ml Syr IV 04/30/21 23:59 PRN PRN Sodium Chloride 0 ml 04/01/21 06:00 Normal Saline 10 Ml Vial IJ 04/30/21 23:59 DIRECTED PRN Sterile Water 0 ml 04/01/21 06:00 Water,Injection,Sterile 10 Ml Vial IJ 04/30/21 23:59 DIRECTED PRN PFSH Active Problems Active Problems: Problem Status Onset Code Myofascial pain dysfunction syndrome M79.1 Spondylosis of lumbar region without myelopathy or radiculopathy M47.816 Lateral epicondylitis of both elbows M77.11, M77.12 Cubital tunnel syndrome on right G56.21 Right carpal tunnel syndrome G56.01 Medical History Medical History Atopic dermatitis Back pain ETOH abuse Fusion congenital, sacroiliac joint Lumbosacral radiculopathy Pain in right hip Preventative health care Sacroiliitis Sciatica of right side Screening for hyperlipidemia Skin lesions Spinal stenosis, lumbar Tobacco abuse Surgical History Surgical History (Updated 04/01/21 @ 09:01 by James Alexander) H/O knee surgery Hx of tubal ligation Status post lumbar spine surgery for decompression of spinal cord L4-L5 & S1 Tobacco Smoking/Tobacco Use Status: Current every day Tobacco Type: cigarettes Alcohol Alcohol Intake: current Alcohol intake frequency: 0-2 drinks per day Alcohol type: beer Substance Use Substance use: Daily Substance use type: marijuana Details: Marijuana for pain Vital Signs and Lab Results Vital Signs Most Recent Vital Signs in EMR: Most Recent Vital Signs Temp Pulse Resp BP Pulse Ox 36.7 C 99 H 16 130/79 99 04/01/21 09:03 04/01/21 09:03 04/01/21 09:03 04/01/21 09:03 04/01/21 09:03 Lab Results Blood Type / Crossmatch: No Data to Display Complete Blood Count: No Data to Display Complete Metabolic Panel: No Data to Display Liver Function Panel: No Data to Display Coagulation Panel: No Data to Display Cardiac Panel: No Data to Display Arterial Blood Gas: No Data to Display Venous Blood Gas: No Data to Display Pancreas Panel: No Data to Display Thyroid Panel: No Data to Display Infectious Disease: Coronavirus (COVID-19)(PCR) Negative (Negative) 03/30/21 08:31 03/30/21 Coronavirus 2019 Source NASAL 03/30/21 08:31 03/30/21 Blood Cultures: No Data to Display Toxicology Panel: No Data to Display Anesthesia Assessment and Plan Anesthesia History Personal History: No History of Anesthesia Complications Family History: No Family History of Anesthesia Complications Exercise Tolerance Exercise Tolerance: Metabolic Equivalents>4 Pertinent Negatives Pertinent Negatives: No Symptoms of GERD, No Major Cardiovascular Symptoms or Complaints and No Major Pulmonary Symptoms or Complaints Cardiac & Pulmonary Exam Cardiac Exam: Normal S1/S2 Heart Sounds Pulmonary Exam: Clear Bilateral Breath Sounds Implantable Cardiac Device Does patient have a Pacemaker or an ICD?: No Airway Exam Known Difficult Airway: No Mallampati Class: 1 Mouth Opening: Normal (> 3cm) Thyromental Distance: Greater than 3 cm Neck Range of Motion: Full ROM Neck Circumference: Normal Teeth Condition: Normal Dentition ASA Classification ASA Score: ASA 2 Emergency Case?: No NPO Status NPO Status: NPO Clears >2 hours, Solids >8 hours Anesthesia Plan Resuscitation Status: Full Code Anesthesia Technique: General Anesthesia Airway Planned: Endotracheal Tube Pain Management: Surgeon and patient request nerve block Monitors Used: Standard Monitors
[2021-04-01] MEDS: ceFAZolin 2 GM/50 ML BAG IVPB (10:52)
[2021-04-01] MEDS: EPINEPHrine 30 MG/30 ML VIAL (11:45)
--- NOTE | 2021-04-01 11:51 | W.PM.DSUDISC ---
Discharge Plan Disposition Patient Disposition: HOME Condition: Stable Discharge Details Reason For Visit: Right elbow surgery Attending Provider: Lake Hancock Primary Care Provider: Heather Marshall Home Meds and New Rx's Prescriptions: New naproxen 250 mg tablet 250 - 500 mg PO BID PRNQty: 30 0RF Rx Instructions: take with a meal aspirin 81 mg tablet,delayed release (DR/EC) 81 mg PO DAILY 14 Days Qty: 14 0RF oxycodone 5 mg tablet 5 - 10 mg PO Q4H MDD 30 mg PRN (Reason: moderate to severe pain) Qty: 12 0RF Continued hydrocortisone 2.5 % Cream 1 applic TOPICAL BID PRN0RF Discontinued naproxen sodium [Aleve] 220 mg capsule 220 mg PO Q12H 0RF Discharge Instructions Additional Instructions: Surgery: Right elbow arthroscopy with debridement lateral epicondylitis Activity: Weightbearing as tolerated. Advance range of motion as comfort allows. Important to restore full elbow extension as soon as possible. Recommend avoiding repetitive activities and heavy lifting for 6-8 weeks. A physical therapy prescription will be provided in the office at follow-up if needed. Prescriptions: Aspirin 81 mg take 1 daily to prevent a blood clot for 14 days Naproxen 250 mg take 1-2 every 12 hours with a meal as needed for moderate pain Oxycodone 5 mg take 1-2 every 4-6 hours as needed for severe pain You may use [id number] Tylenol (acetaminophen) as needed for mild pain. These pain medications may be taken all at once or in different combinations as needed. Also, recommend Colace (docusate) as a stool softener as surgery and pain medicine cause constipation. Dressings: Leave dressing in place for 3 days. May then remove and leave open to air or cover incisions with Band-Aids. May shower after 5 days. Follow-up: 10-14 days with an orthopedic physician career services assistant and 6-[address] Hancock. A left elbow MRI has been ordered today to be done prior to follow-up with Dr. Hancock. Let us know right away if you develop any redness, drainage, fevers, chest pain, or trouble breathing. Do not drink alcohol or drive for at least 24 hours after anesthesia. Please call the office during business hours with any questions or concerns. Referrals: Lake Hancock MD [ [facility] STAFF PHYSICIAN] - Discharge Orders Discharge Orders: Discharge Order (Routine); Ordered 04/01/21 Ordered By: Lake Hancock DS: Diagnosis Discharge Diagnosis (1) Lateral epicondylitis of both elbows: Status: Acute
--- NOTE | 2021-04-01 12:00 | W.PM.OP ---
Operative Note Operative Note PRE-OP DIAGNOSIS: Right elbow lateral epicondylitis POST-OP DIAGNOSIS: same PROCEDURE: Right elbow arthroscopy with debridement lateral epicondylitis, CPT # [address]3963 SURGEON: Lake Hancock Refer to Anesthesia Record ESTIMATED BLOOD LOSS: 5 TOURNIQUET TIME: 0 COMPLICATIONS: None Patient was transported to: PACU Patient's condition: stable Indications: Please see complete medical record for details. Findings: Mild anterior and lateral synovitis. Intact cartilaginous surfaces. Thickened degenerative ECRB and to a lesser extent ECRL Procedure Description: In the operating room, general anesthesia was induced. The patient was positioned lateral on the operating room table. All bony prominences were well-padded. Preoperative antibiotics were administered. The elbow was prepped and draped in the usual sterile fashion. The correct patient, procedure, and side of the procedure were all verified prior to incision. 20 cc of normal saline was used to insufflate the right elbow joint through the lateral soft spot. The sp and spread technique was used to establish the proximal anteromedial portal. A diagnostic arthroscopy of the anterior elbow compartment was performed with findings noted above. A spinal needle was used to localize a modified direct lateral working portal for lateral epicondyle and common extensor origin debridement. The spinal needle was used to set the superior and inferior margins of the resection as well as free up disease tissue from its bony origin. Next an 11 blade was used to sp the skin followed by straight snap to spread down to the diseased tendon tissue and meticulously release the ECRB as well as adjacent thickened diseased ECRL tendon from the lateral epicondyle. Care was taken to work anterior to the the radial head to preserve the radial collateral ligament. A 3.5 mm shaver was used to debride approximately 1 cm of diseased tendon and lightly abrade lateral epicondyle bony origin. Shaver was also used to remove the small amount of lateral synovitis. The elbow was drained of arthroscopic fluid. The medial and lateral portals were closed using 3-0 Monocryl in a buried interrupted fashion. Mastisol was applied about the incisions which were covered with Steri-Strips. Xeroform pieces were applied over both incisions and covered with dry 4 x 4 gauze. The radial pulse was 2+. The elbow was gently compressed with aniket bandage. The patient awoke from anesthesia without complication and was transferred to the recovery room in stable fashion.
--- NOTE | 2021-04-01 12:20 | W.ANESPOSTOP ---
Postoperative Evaluation Date, Time and Location Date Performed: 04/01/21 Time Performed: 12:20 Patient Location: PACU Vital Signs Most Recent Imported Vital Signs: Most Recent Vital Signs Temp Pulse Resp BP Pulse Ox 36.5 C 82 19 138/79 99 04/01/21 12:11 04/01/21 12:11 04/01/21 12:11 04/01/21 12:11 04/01/21 12:11 Pain Score Most Recent Pain Score: Most Recent Pain Score Pain Level 1 04/01/21 12:11 Assessment Mental Status: Awake (Alert & Oriented to Patient Baseline) Airway and Respiratory Function: Patent airway with normal (patient baseline) respiratory exam Cardiovascular Function: Hemodynamically Stable Hydration Status: Adequately Hydrated Nausea & Vomiting: No Nausea or Vomiting Pain: Pain is tolerable per patient Peripheral Nerve Block: Regional nerve block not resolved at time of post operative discharge
--- NOTE | 2021-04-01 13:22 | W.ANESNERVE ---
Nerve Block Single Injection Procedure Date and Time Date Performed: 04/01/21 Procedure Start: 10:40 Location Where Procedure Performed Procedure Location: Day Surgery Unit Reason Performed: Postoperative Analgesia Requesting Provider: [place] Timeout Performed Timeout Performed: Yes Monitoring Used ECG, Blood Pressure, SpO2 and See EMR for corresponding vital signs Sterility Sterility: Hand Hygiene, Surgical Cap, Surgical Mask, Sterile Gloves and Chlorhexidine Sedation Given During Procedure Sedation Given (Indicate Dose Given): Versed IV Dose:: 2mg Patient Mental Status Patient Mental Status: Sedate with meaningful communication Nerve Block 1st Nerve Block: Laterality: Right Block Type: Supraclavicular Needle / Catheter Used: 100mm SonoPlex II Local Anesthetic Bolus (Indicate Dose Given): Lidocaine used for local infiltration of skin, Injected in 3-5ml increments after negative blood aspiration, Bupivacaine 0.5% Dose:: 10ml and Exparel Dose:: 10ml Additives (Indicate Dose Given): None Ultrasound: Sterile probe cover and gel used Ultrasound Image Saved?: Yes Nerve Stimulator: Not Used Paresthesia: None Procedure Tolerated: No Complications and Patient tolerated well Procedure Outcome: Successful Performed By: Lukas Wright
== END 2021-04-01 13:35 | disposition home or self-care (01) ==
LOC: SUR 08:51
PROVIDERS: PCP Nurse Practitioner Family; Visit Provider Student in an Organized Health Care Education/Training Program
PROC: (CPT 29830; principal; 2021-04-01 10:30)
DX: M77.11 Lateral epicondylitis, right elbow (principal); F10.10 Alcohol abuse, uncomplicated; F17.210 Nicotine dependence, cigarettes, uncomplicated; M79.18 Myalgia, other site
CPT/HCPCS: 29837; 76942; J0690; J1100; J2250; J2405; J2704

== ENCOUNTER 2021-04-15 03:44 | Outpatient (CLI) | payer BC, SELFPAY ==
--- NOTE | 2021-04-15 06:47 | DI.MRI_ITS ---
Exam(s) MR UPPER JOINT LT WO EXAM: MR UPPER JOINT LT WO CLINICAL HISTORY: Persistent pain,LATERAL EPICONDYLITIS BOTH ELBOWS,M77.12,M77.11. TECHNIQUE: Multiplanar multisequence MRI was performed. CONTRAST MATERIAL: None COMPARISON: 28 September 2020 FINDINGS: A marker was placed in the area of the patient's pain at the lateral epicondyle. There is edema in a djacent to the lateral epicondyle, at the origin of the common extensor tendon. There is disruption s ome of the fibers consistent with a severe partial tear. The radial collateral ligament appears intac t. There remaining tendons appear intact. There is a small bony projection from the distal humerus, a t the medial aspect of the radiocapitellar joint. This is seen on the previous plain films. There is a minimal joint effusion. IMPRESSION: Severe partial tear of the common extensor tendon. DATA REPOSITORY:
== END 2021-04-15 04:04 ==
PROVIDERS: PCP Nurse Practitioner Family; Visit Provider Student in an Organized Health Care Education/Training Program
DX: M77.11 Lateral epicondylitis, right elbow (principal); M77.12 Lateral epicondylitis, left elbow; S56.512A Strain of other extensor muscle, fascia and tendon at forearm level, left arm, initial encounter; X58.XXXA Exposure to other specified factors, initial encounter
CPT/HCPCS: 73221

== ENCOUNTER 2021-05-26 02:29 | Outpatient (CLI) | payer BC, SELFPAY ==
[2021-05-26 12:47] LABS: Source Nasal/Nares
[2021-05-26 23:21] LABS: COVID-19 PCR Negative (Negative)
== END 2021-05-26 02:30 | disposition home or self-care (01) ==
LOC: LBO 02:29
PROVIDERS: PCP Nurse Practitioner Family; Visit Provider Student in an Organized Health Care Education/Training Program
DX: Z20.822 Contact with and (suspected) exposure to COVID-19 (principal); Z01.818 Encounter for other preprocedural examination
CPT/HCPCS: 87635

== ENCOUNTER 2021-05-28 09:58 | Day surgery (SDC) | payer BC, SELFPAY ==
[2021-05-28] VITALS (9 sets, daily range): BP systolic 112–141; BP diastolic 58–83; PULSE 67–82; RESP 14–20; TEMP 36.1–36.6; O2SAT 93–99; BMI 25.4
--- NOTE | 2021-05-28 10:39 | W.ANESPRE ---
General Info Date of Service Date Performed: 05/28/21 Height: 5 ft 10 in Weight: 80.5 kg Body Mass Index (BMI): 25.4 Surgical Procedure: Operation Date: 05/28/21 11:35 Proposed Procedure Side Surgeon p Elbow Arthroscopy w/Debridement Lateral Epicondylitis Left [place] H[place] MD Meds Allergies and Home Medications Allergies Allergy/AdvReac Type Severity Reaction Status Date / Time adhesive Allergy Intermediate rash Verified 05/28/21 10:06 latex Allergy Intermediate rash Verified 05/28/21 10:06 mold Allergy Intermediate Hives Verified 05/28/21 10:06 morphine Allergy HIVES Verified 05/28/21 10:06 Home Medication Medication Instructions Recorded hydrocortisone 2.5 % topical cream 1 applic TOPICAL BID PRN 04/04/19 Current Visit Medications: Current Medications Generic Name Dose Route Start Last Admin Trade Name Freq PRN Reason Stop Dose Admin Ringer's Solution 1,000 mls @ 30 mls/hr 05/28/21 06:00 IV 06/26/21 23:59 INFUSION VALDEZ Cefazolin Sodium/Dextrose 2 gm in 50 mls @ 100 mls/hr 05/28/21 06:00 Ancef Duplex IVPB 06/26/21 23:59 PREOP VALDEZ IV Miscellaneous Supplies 1 each 05/28/21 06:00 Iv Access IV 06/26/21 23:59 DIRECTED VALDEZ Sodium Chloride 0 ml 05/28/21 06:00 Normal Saline Flush 10 Ml Syr IV 06/26/21 23:59 PRN PRN Sodium Chloride 0 ml 05/28/21 06:00 Normal Saline 10 Ml Vial IJ 06/26/21 23:59 DIRECTED PRN Sterile Water 0 ml 05/28/21 06:00 Water,Injection,Sterile 10 Ml Vial IJ 06/26/21 23:59 DIRECTED PRN PFSH Active Problems Active Problems: Problem Status Onset Code Myofascial pain dysfunction syndrome M79.1 Spondylosis of lumbar region without myelopathy or radiculopathy M47.816 Lateral epicondylitis of both elbows M77.11, M77.12 Cubital tunnel syndrome on right G56.21 Right carpal tunnel syndrome G56.01 Medical History Medical History Atopic dermatitis Back pain ETOH abuse Fusion congenital, sacroiliac joint Lumbosacral radiculopathy Pain in right hip Preventative health care Sacroiliitis Sciatica of right side Screening for hyperlipidemia Skin lesions Spinal stenosis, lumbar Tobacco abuse Surgical History Surgical History H/O knee surgery Hx of tubal ligation Status post lumbar spine surgery for decompression of spinal cord L4-L5 & S1 Tobacco Smoking/Tobacco Use Status: Current every day Tobacco Type: cigarettes Alcohol Alcohol Intake: current Alcohol intake frequency: a few times a month Alcohol type: beer Substance Use Substance use: Occasionally Substance use type: marijuana Vital Signs and Lab Results Vital Signs Most Recent Vital Signs in EMR: Most Recent Vital Signs Temp Pulse Resp BP Pulse Ox 36.5 C 82 18 126/74 98 05/28/21 10:17 05/28/21 10:17 05/28/21 10:17 05/28/21 10:17 05/28/21 10:17 Lab Results Blood Type / Crossmatch: No Data to Display Complete Blood Count: No Data to Display Complete Metabolic Panel: No Data to Display Liver Function Panel: No Data to Display Coagulation Panel: No Data to Display Cardiac Panel: No Data to Display Arterial Blood Gas: No Data to Display Venous Blood Gas: No Data to Display Pancreas Panel: No Data to Display Thyroid Panel: No Data to Display Infectious Disease: Coronavirus (COVID-19)(PCR) Negative (Negative) 05/26/21 08:41 05/26/21 Coronavirus 2019 Source Nasal/Nares 05/26/21 08:41 05/26/21 Blood Cultures: No Data to Display Toxicology Panel: No Data to Display Anesthesia Assessment and Plan Anesthesia History Personal History: No History of Anesthesia Complications Family History: No Family History of Anesthesia Complications Exercise Tolerance Exercise Tolerance: Metabolic Equivalents>4 Pertinent Negatives Pertinent Negatives: No Symptoms of GERD Cardiac & Pulmonary Exam Cardiac Exam: Normal S1/S2 Heart Sounds Pulmonary Exam: Clear Bilateral Breath Sounds Implantable Cardiac Device Does patient have a Pacemaker or an ICD?: No Airway Exam Known Difficult Airway: No Mallampati Class: 1 Mouth Opening: Normal (> 3cm) Thyromental Distance: Greater than 3 cm Neck Range of Motion: Full ROM Neck Circumference: Normal Teeth Condition: Normal Dentition ASA Classification ASA Score: ASA 2 Emergency Case?: No NPO Status NPO Status: NPO Clears >2 hours, Solids >8 hours Anesthesia Plan Resuscitation Status: Full Code Anesthesia Technique: General Anesthesia Airway Planned: Endotracheal Tube Pain Management: Surgeon and patient request nerve block Monitors Used: Standard Monitors
[2021-05-28] MEDS: Lactated Ringers 1,000 ML 30 ML IV (10:44)
--- NOTE | 2021-05-28 11:15 | W.ANESNERVE ---
Nerve Block Single Injection Procedure Date and Time Date Performed: 05/28/21 Procedure Start: 11:10 Location Where Procedure Performed Procedure Location: Day Surgery Unit Reason Performed: Postoperative Analgesia Requesting Provider: [place] Timeout Performed Timeout Performed: Yes Monitoring Used ECG, Blood Pressure, SpO2 and See EMR for corresponding vital signs Sterility Sterility: Hand Hygiene, Surgical Cap, Surgical Mask, Sterile Gloves, Eye Protection and Chlorhexidine Sedation Given During Procedure Sedation Given (Indicate Dose Given): Versed IV Dose:: 2mg Patient Mental Status Patient Mental Status: Sedate with meaningful communication Nerve Block 1st Nerve Block: Laterality: Left Block Type: Supraclavicular Needle / Catheter Used: 80mm SonoPlex II Local Anesthetic Bolus (Indicate Dose Given): Lidocaine used for local infiltration of skin and Bupivacaine 0.5% Dose:: 20 ml Additives (Indicate Dose Given): None Ultrasound: Sterile probe cover and gel used Ultrasound Image Saved?: Yes Nerve Stimulator: Not Used Paresthesia: None Procedure Tolerated: No Complications and Patient tolerated well Procedure Outcome: Successful Performed By: Suly Cavanaugh Supervised By: Lukas Wright
[2021-05-28] MEDS: ceFAZolin 2 GM/50 ML BAG IVPB (11:27)
--- NOTE | 2021-05-28 12:00 | ROE_ITS ---
Date of service: 05/28/21 Time of Service: 15:41 Operative Note Operative Note DATE OF PROCEDURE: 05/28/21 PRE-OP DIAGNOSIS: Left elbow lateral epicondylitis POST-OP DIAGNOSIS: same PROCEDURE: Left elbow arthroscopy with debridement lateral epicondylitis, CPT # [address]65 SURGEON: [place] H[place] BRAND REPRESENTATIVE: None None ANESTHESIA TYPE: General LMA/ETT and Primary Nerve Block Refer to Anesthesia Record ESTIMATED BLOOD LOSS: 5 COMPLICATIONS: None Patient was transported to: PACU Indications: Please see complete medical record for details. Findings: Moderate anterior and lateral synovitis. Intact cartilaginous surfaces. No loose body or OCD. Thickened with high-grade partial tearing at the origin of ECRB and ECRL. Procedure Description: In the operating room, general anesthesia was induced. The patient was positioned lateral on the operating room table. All bony prominences were well- padded. Preoperative antibiotics were administered. The elbow was prepped and draped in the usual sterile fashion. The correct patient, procedure, and side of the procedure were all verified prior to incision. 20 cc of normal saline was used to insufflate the right elbow joint through the lateral soft spot. The sp and spread technique was used to establish the proximal anteromedial portal. A diagnostic arthroscopy of the anterior elbow compartment was performed with findings noted above. A 18-gauge needle needle was used to localize a modified direct lateral working portal for lateral epicondyle and common extensor origin debridement. The needle was used to set the superior and inferior margins of the resection as well as free up disease tissue from its bony origin. A scalpel was used to sp the skin followed by [place] blade to meticulously release the ECRB as well as adjacent ECRL tendon from the lateral epicondyle. Care was taken to work anterior to the midline of the radial head to preserve the radial collateral ligament. A 3.5 mm shaver was used to debride approximately 1 cm of diseased tendon and lightly abrade lateral epicondyle bony origin. Shaver was also used to remove the small amount of lateral and anterior synovitis. The elbow was drained of arthroscopic fluid. The medial and lateral portals were closed using 3-0 Monocryl in a buried interrupted fashion. Mastisol was applied about the incisions which were covered with Steri-Strips. Xeroform pieces were applied over both incisions and covered with dry 4 x 4 gauze. The radial pulse was 2+. The elbow was gently compressed with aniket bandage. The patient awoke from anesthesia without complication and was transferred to the recovery room in stable fashion.
[2021-05-28] MEDS: EPINEPHrine 30 MG/30 ML VIAL (12:05)
--- NOTE | 2021-05-28 12:26 | PDOC.DSDIS_ITS ---
Discharge Plan Disposition Patient Disposition: HOME Condition: Stable Discharge Details Reason For Visit: Left elbow surgery Attending Provider: [place] H[place] Primary Care Provider: Heather Marshall Home Meds and New Rx's Prescriptions: New naproxen 250 mg tablet 250 - 500 mg PO BID PRNQty: 40 0RF Rx Instructions: take with a meal aspirin 81 mg tablet,delayed release (DR/EC) 81 mg PO DAILY 14 Days Qty: 14 0RF oxycodone 5 mg tablet 5 - 10 mg PO Q4H MDD 30 mg PRN (Reason: moderate to severe pain) Qty: 12 0RF Continued hydrocortisone 2.5 % Cream 1 applic TOPICAL BID PRN0RF Discharge Instructions Additional Instructions: Surgery: Left elbow arthroscopy with debridement lateral epicondylitis Activity: Weightbearing as tolerated. Advance range of motion as comfort allows. Important to restore full elbow extension as soon as possible. Recommend avoiding repetitive activities and heavy lifting for 6-8 weeks. A physical therapy prescription will be sent electronically to resume in 2 to 3 weeks. Prescriptions: Aspirin 81 mg take 1 daily to prevent a blood clot for 14 days Naproxen 250 mg take 1-2 every 12 hours with a meal as needed for moderate pain Oxycodone 5 mg take 1-2 every 4-6 hours as needed for severe pain You may use [id number] Tylenol (acetaminophen) as needed for mild pain. These pain medications may be taken all at once or in different combinations as needed. Also, recommend Colace (docusate) as a stool softener as surgery and pain medicine cause constipation. Dressings: Leave dressing in place for 3 days. May then remove and leave open to air or cover incisions with Band-Aids. May shower after 5 days. Follow-up: 10-[address] Hancock Let us know right away if you develop any redness, drainage, fevers, chest pain, or trouble breathing. Do not drink alcohol or drive for at least 24 hours after anesthesia. Please call the office during business hours with any questions or concerns. Referrals: Lake Hancock MD [ [facility] STAFF PHYSICIAN] - Discharge Orders Discharge Orders: Discharge Order (Routine); Ordered 05/28/21 Ordered By: [place] H[place] DS: Diagnosis Discharge Diagnosis (1) Lateral epicondylitis of both elbows: Status: Acute
[2021-05-28] MEDS: Normal Saline 10 ML VIAL IJ (12:52)
[2021-05-28] MEDS: HYDROmorphone 2 MG/ML VIAL IVP (12:52)
--- NOTE | 2021-05-28 14:26 | W.ANESPOSTOP ---
Postoperative Evaluation Date, Time and Location Date Performed: 05/28/21 Time Performed: 14:26 Patient Location: Day Surgery Unit Vital Signs Most Recent Imported Vital Signs: Most Recent Vital Signs Temp Pulse Resp BP Pulse Ox 36.1 C L 67 18 141/83 H 99 05/28/21 13:25 05/28/21 13:25 05/28/21 13:25 05/28/21 13:25 05/28/21 13:25 Pain Score Most Recent Pain Score: Most Recent Pain Score Pain Level 2 05/28/21 13:25 Assessment Mental Status: Awake (Alert & Oriented to Patient Baseline) Airway and Respiratory Function: Patent airway with normal (patient baseline) respiratory exam Cardiovascular Function: Hemodynamically Stable Hydration Status: Adequately Hydrated Nausea & Vomiting: No Nausea or Vomiting Pain: Pain is tolerable per patient Peripheral Nerve Block: Regional nerve block not resolved at time of post operative discharge
== END 2021-05-28 14:25 | disposition home or self-care (01) ==
PROVIDERS: PCP Nurse Practitioner Family; Visit Provider Student in an Organized Health Care Education/Training Program
PROC: (CPT 29830; principal; 2021-05-28 11:15)
DX: M77.12 Lateral epicondylitis, left elbow (principal); F10.10 Alcohol abuse, uncomplicated; F17.210 Nicotine dependence, cigarettes, uncomplicated; M79.7 Fibromyalgia
CPT/HCPCS: 29837; 76942; J0690; J1100; J1885; J2001; J2250; J2405

== ENCOUNTER 2022-03-18 13:57 | Outpatient (REF) | payer BC, SELFPAY ==
[2022-03-18 14:25] LABS: HCT 43.6 % (36.0-46.0); HGB 14.4 g/dL (11.2-15.7); MCH 31.4 pg (27.0-33.0); MCV 95 fL (80-95); Platelet Count 147 10^3/uL (130-400); RBC 4.58 10^6/uL (3.93-5.22); RDW-SD 45.4 fL; WBC 10.11 10^3/uL (4.4-10.8)
[2022-03-18 14:43] LABS: ALT 15 U/L (14-59); AST 15 U/L (15-37); Albumin 4.2 g/dL (3.4-5.0); Alkaline Phosphatase 158 U/L (46-116); Anion Gap 6.5 mmol/L (3-11); BUN 10 mg/dL (7-18); Bilirubin, Total 0.4 mg/dL (0.2-1.0); CO2 30.5 mmol/L (21.0-32.0); CREATININE 0.8 mg/dL (0.55-1.02); Calcium 9.5 mg/dL (8.5-10.1); Calculated LDL 134 mg/dL (<100); Chloride 102 mmol/L (98-107); Cholesterol 224 mg/dL (<200); Estimated GFR 82.74 (mL/min/1.73m2); Glucose 86 mg/dL (74-106); HDL Cholesterol 70 mg/dL (40-60); Potassium 4.4 mmol/L (3.5-5.1); Sodium 139 mmol/L (136-145); Total Protein 7.7 g/dL (6.4-8.2); Triglyceride 101 mg/dL (<150)
[2022-03-21 11:55] LABS: Hepatitis C Ab w Rflx HCV PCR Negative (Negative)
[2022-03-21 13:16] LABS: HIV-1/2 Ag & Ab Screen Negative (Negative)
== END 2022-03-18 13:58 | disposition home or self-care (01) ==
LOC: NCHCN 13:57
PROVIDERS: PCP Nurse Practitioner Family; Visit Provider Nurse Practitioner Family
DX: I10 Essential (primary) hypertension (principal); Z00.00 Encounter for general adult medical examination without abnormal findings; Z11.59 Encounter for screening for other viral diseases; Z11.4 Encounter for screening for human immunodeficiency virus [HIV]
CPT/HCPCS: 80053; 80061; 85027; 86803; 87389

== ENCOUNTER 2022-03-21 01:49 | Outpatient (CLI) | payer BC, SELFPAY ==
--- NOTE | 2022-03-21 | DI.RAD_ITS ---
Exam(s) XR HIP PELVIS ADULT BL EXAM: XR HIP PELVIS ADULT BL CLINICAL HISTORY: HIP PAIN, M25.559, SACROILITIS, M46.1. TECHNIQUE: 2D digital imaging was performed of the pelvis and bilateral hips. Three images were obt ained. AP pelvis and lateral views of both hips were obtained. COMPARISON: CR XR hip RT complete AP pelvis from 10/18/2018 FINDINGS: BONES: No acute fracture is present. No bony destructive lesion is seen. JOINTS: No dislocation present. Postsurgical changes are again seen at the sacroiliac joint. The hip s are well maintained. SOFT TISSUE: Normal. IMPRESSION: 1. Stable postsurgical changes in the sacroiliac joints. 2. Unremarkable bilateral hips. DATA REPOSITORY: RADIATION DOSE DELIVERED:
--- NOTE | 2022-03-21 | DI.RAD_ITS ---
Exam(s) XR LUMBAR SPINE COMPLETE EXAM: XR LUMBAR SPINE COMPLETE CLINICAL HISTORY: LOW BACK PAIN, M54.50. TECHNIQUE: 2D digital imaging was performed of the lumbar spine. Five images were obtained. AP, la teral, right oblique, left oblique and L5-S1 spot views were obtained. COMPARISON: CR LUMBAR SPINE COMPLETE from 06/08/2012 CR XR hip RT complete AP pelvis from 10/18/2018 CR XR SACROILIAC JOINTS from 08/30/2019 FINDINGS: BONES: No fracture or destructive lesion. Endplate osteophytes are present throughout the lumbar spin e. No facet hypertrophy identified. There are stable postsurgical changes in the sacroiliac joints. Since the prior examination the patient has undergone an L5 laminectomy. DISKS: There is mild disc space narrowing at L4-5 and L5-S1. ALIGNMENT: There is a mild right convex curvature of the lumbar spine. No spondylolysis or spondylol isthesis. SOFT TISSUE: Atherosclerosis is present. IMPRESSION: 1. Postsurgical changes in the sacroiliac joints and L5. 2. Degenerative changes in the lumbar spine. 3. Atherosclerosis. DATA REPOSITORY: RADIATION DOSE DELIVERED:
== END 2022-03-21 02:09 ==
LOC: DI 01:50
PROVIDERS: PCP Nurse Practitioner Family; Visit Provider Nurse Practitioner Family
DX: M54.59 Other low back pain (principal); M51.37 Other intervertebral disc degeneration, lumbosacral region; Z98.890 Other specified postprocedural states; M25.551 Pain in right hip; M25.552 Pain in left hip; M46.1 Sacroiliitis, not elsewhere classified
CPT/HCPCS: 73521; 72110

== ENCOUNTER 2022-04-05 11:08 | Outpatient (REF) | payer BC, SELFPAY ==
[2022-04-05 14:52] LABS: GGT 21 U/L (5-55)
== END 2022-04-05 11:09 | disposition home or self-care (01) ==
LOC: NCHCN 11:08
PROVIDERS: PCP Nurse Practitioner Family; Visit Provider Nurse Practitioner Family
DX: R74.8 Abnormal levels of other serum enzymes (principal)
CPT/HCPCS: 82977

== ENCOUNTER 2022-04-19 14:31 | Outpatient (REF) | payer BC, SELFPAY ==
[2022-04-19 22:13] LABS: C-Reactive Protein 0.51 mg/dL (0.0-0.3)
[2022-04-19 22:19] LABS: ESR 12 mm/hr (0-30)
[2022-04-20 17:29] LABS: Rheumatoid Factor <8.6 IU/mL (<12.0)
[2022-04-21 14:33] LABS: ANA Interpretation Positive (Negative); ANA Titer Pattern 1:160 Speckled
== END 2022-04-19 14:32 | disposition home or self-care (01) ==
LOC: NCHCN 14:31
PROVIDERS: PCP Nurse Practitioner Family; Visit Provider Nurse Practitioner Family
DX: M25.50 Pain in unspecified joint (principal); M54.59 Other low back pain; M25.551 Pain in right hip; M25.552 Pain in left hip
CPT/HCPCS: 85652; 86038; 86140; 86431

== ENCOUNTER 2024-11-28 05:47 | Outpatient (CLI) | payer MEDICARE, BC, SELFPAY ==
--- NOTE | 2024-11-28 07:45 | DI.RAD_ITS ---
Exam(s) XR FOOT LT COMPLETE EXAM: XR FOOT LT COMPLETE CLINICAL HISTORY: Left foot pain,m79.672. TECHNIQUE: 2D digital imaging was performed. Three views. COMPARISON: No exams were available for comparison FINDINGS: BONES: No acute fracture is present. No bony destructive lesion is seen. Plantar calcaneal spur. JOINTS: No dislocation present. Moderate narrowing of the lateral aspect of the 1st MTP joint with there is periarticular spurring. No significant hallux valgus. Joint space narrowing and mild spurring at the 2nd tarsal metatarsal joint. SOFT TISSUE: Normal. IMPRESSION: Degenerative changes at the 1st MTP joint and 2nd tarsal metatarsal joint. DATA REPOSITORY: RADIATION DOSE DELIVERED:
--- NOTE | 2024-11-28 15:14 | DI.RAD_ITS ---
Exam(s) XR ANKLE LT COMPLETE EXAM: XR ANKLE LT COMPLETE CLINICAL HISTORY: Medial and posterior ankle pain m25.572 pain left ankle TECHNIQUE: 2D digital imaging was performed of the left ankle. Four images were obtained. AP, lateral and oblique views were obtained. COMPARISON: No exams were available for comparison FINDINGS: BONES: No acute fracture is present. No bony destructive lesion is seen. The plantar calcaneal spur. JOINTS:The ankle mortise is normally aligned. SOFT TISSUE: Normal. There is a well corticated osseous density adjacent to the medial malleolus which is old. IMPRESSION: Calcaneal spur. DATA REPOSITORY: RADIATION DOSE DELIVERED:
== END 2024-11-28 06:07 ==
PROVIDERS: PCP Nurse Practitioner Family; Visit Provider Podiatrist
DX: M77.32 Calcaneal spur, left foot (principal); M19.172 Post-traumatic osteoarthritis, left ankle and foot; M76.822 Posterior tibial tendinitis, left leg; M20.42 Other hammer toe(s) (acquired), left foot; M77.52 Other enthesopathy of left foot and ankle
CPT/HCPCS: 20600; 99203; J0702; J1100; 73610; 73630

== ENCOUNTER → 2024-12-16 09:31 | Outpatient (BNVA) | payer MEDICARE, BC, SELFPAY | PROVIDERS: PCP Nurse Practitioner Family; Referring Provider Nurse Practitioner Family; Visit Provider Podiatrist | DX: M19.172 Post-traumatic osteoarthritis, left ankle and foot (principal); M76.822 Posterior tibial tendinitis, left leg; M77.52 Other enthesopathy of left foot and ankle; M20.42 Other hammer toe(s) (acquired), left foot; M25.572 Pain in left ankle and joints of left foot | CPT/HCPCS: 99213 ==

== ENCOUNTER → 2025-01-16 09:33 | Outpatient (BNVA) | payer MEDICARE, BC, SELFPAY | PROVIDERS: PCP Nurse Practitioner Family; Referring Provider Nurse Practitioner Family; Visit Provider Podiatrist | DX: M25.572 Pain in left ankle and joints of left foot (principal); M20.42 Other hammer toe(s) (acquired), left foot; M77.52 Other enthesopathy of left foot and ankle; M76.822 Posterior tibial tendinitis, left leg; M19.172 Post-traumatic osteoarthritis, left ankle and foot | CPT/HCPCS: 99213 ==